=== PATIENT | male | born 1990 | race Caucasian/White ===

== ENCOUNTER 2017-05-12 23:24 | Emergency (ER) | payer MEDICAID ==
[2017-05-12 23:32] VITALS: TEMP 99.3
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
[2017-05-13 00:32] VITALS: BP 119/75; PULSE 79; RESP 20; O2SAT 96
== END 2017-05-13 00:45 | disposition home or self-care (01) ==
LOC: EDUNIT#
PROC: 09QKXZZ Repair Nasal Mucosa and Soft Tissue, External Approach (ICD-10-PCS; principal; 2017-05-12)
DX: S01.81XA Laceration without foreign body of other part of head, initial encounter (principal); W25.XXXA Contact with sharp glass, initial encounter